=== PATIENT | female | born 1960 | race Two or more races ===

== ENCOUNTER 2018-02-23 02:09 | Emergency (ER) | payer SELFPAY ==
[~2018-02-23] VITALS: Ht 165.1 cm; Wt 68.0 kg
[2018-02-23 02:12] VITALS: BP 122/75
[2018-02-23] MEDS ORDERED: ACETAMINOPHEN ES 500 MG TABLET PO ONE (02:30)
[2018-02-23] MEDS ORDERED: IBUPROFEN 600 MG TABLET PO ONE ×2 (02:30→02:35)
[2018-02-23] MEDS ORDERED: ACETAMINOPHEN ES 500 MG TABLET ONE (02:35)
== END 2018-02-23 03:59 | disposition home or self-care (01) ==
LOC: ER 02:11
DX: M25.561 Pain in right knee (principal); R07.89 Other chest pain; V49.49XA Driver injured in collision with other motor vehicles in traffic accident, initial encounter; Y93.89 Activity, other specified; Y92.413 State road as the place of occurrence of the external cause; Y99.8 Other external cause status
CPT/HCPCS: 71046; 73564-TC; A4606; Z7610